=== PATIENT | female | born 2000 | race Caucasian/White ===

== ENCOUNTER 2018-09-07 14:44 | Emergency (ER) | payer OTHER ==
[~2018-09-07] VITALS: Ht 165.1 cm; Wt 63.6 kg
[2018-09-07] MEDS ORDERED: IBUP-1114 PO (14:55)
[2018-09-07] MEDS ORDERED: OXYC1TAB23 PO (14:55)
[2018-09-07] MEDS ORDERED: ONDANSETRON 4 MG ORAL DISINTEGRATING TAB (Q0162 PER 1MG) PO ONE (15:30)
[2018-09-07] MEDS ORDERED: ZOFR4TAB16 PO (16:31)
[2018-09-07 16:37] VITALS: BP 111/61
== END 2018-09-07 16:43 | disposition home or self-care (01) ==
LOC: M ED 14:44
DX: J95.830 Postprocedural hemorrhage of a respiratory system organ or structure following a respiratory system procedure (principal)
CPT/HCPCS: 99283; Q0162

== ENCOUNTER 2018-12-04 13:08 | Emergency (ER) | payer OTHER ==
[~2018-12-04] VITALS: Ht 165.1 cm; Wt 63.6 kg
[~2018-12-04 13:08] MED LIST: IBUP-1114 PO; OXYC1TAB23 PO; ZOFR4TAB16 PO
[2018-12-04] MEDS ORDERED: ASPIRIN (13:16)
[2018-12-04] MEDS ORDERED: CAFFEINE (13:16)
[2018-12-04] MEDS ORDERED: ACETAMINOPHEN (13:16)
[2018-12-04 14:09] LABS: BASO # 0.1 10^3/uL (0.0-0.2); BASO % 0.7 % (0.0-1.0); EOS # 0.1 10^3/uL (0.0-0.50); EOS % 1.2 % (0.0-3.0); HEMATOCRIT 41.7 % (36.0-47.0); HEMOGLOBIN 13.4 g/dl (12.0-15.5); LYMPH # 1.7 10^3/uL (1.5-6.5); LYMPH % 17.1 % (24.0-44.0); MEAN CORPUSCULAR HEMOGLOBIN 29.8 pg (27.0-33.0); MEAN CORPUSCULAR HGB CONC 32.1 g/dl (32.0-36.5); MEAN CORPUSCULAR VOLUME 92.9 fl (80.0-96.0); MONO # 0.6 10^3/uL (0.0-0.8); MONO % 6.5 % (0.0-5.0); NEUTROPHILS # 7.2 10^3/uL (1.8-7.7); NEUTROPHILS % 74.3 % (36.0-66.0); PLATELET COUNT, AUTOMATED 336 10^3/uL (150-450); RED BLOOD COUNT 4.49 10^6/uL (4.00-5.40); WHITE BLOOD COUNT 9.7 10^3/uL (4.0-10.0)
[2018-12-04 14:34] LABS: BLOOD UREA NITROGEN 10 MG/DL (7-18); CALCIUM LEVEL 8.6 MG/DL (8.5-10.1); CARBON DIOXIDE LEVEL 26 MEQ/L (21-32); CHLORIDE LEVEL 111 MEQ/L (98-107); CREATININE FOR GFR 0.72 MG/DL (0.55-1.30); GLUCOSE, FASTING 79 MG/DL (70-100); HCG, SERUM QUANTITATIVE < 1.0 MIU/ML; POTASSIUM SERUM 4.7 MEQ/L (3.5-5.1); SODIUM LEVEL 141 MEQ/L (136-145)
[2018-12-04 17:01] VITALS: BP 107/59
--- NOTE | 2018-12-04 19:13 | REP ---
REASON: Cramping. Transvesical and transvaginal images were obtained. The uterus measures 8.0 x 3.9 x 5.9 cm. The parenchymal echo pattern is within normal limits. The endometrial echo complex measures 3 mm in thickness and is within normal limits. The right ovary measures 2.8 x 1.8 x 1.5 cm and is within normal limits with an RI of 0.64. The left ovary measures 3.2 x 1.1 x 1.6 cm and is within normal limits with an RI of 0.62. There is no free fluid in the cul-de-sac. IMPRESSION: Normal pelvic ultrasound. Electronically Signed by Biju Lyman DO 12/05/2018 10:01 A
== END 2018-12-04 17:04 | disposition home or self-care (01) ==
LOC: M ED 13:08
DX: N92.6 Irregular menstruation, unspecified (principal)

== ENCOUNTER 2019-01-03 06:10 | Emergency (ER) | payer OTHER ==
[~2019-01-03] VITALS: Ht 165.1 cm; Wt 63.6 kg
[~2019-01-03 06:10] MED LIST changes: +ACETAMINOPHEN; +ASPIRIN; +CAFFEINE
[2019-01-03] MEDS ORDERED: ACETAMINOPHEN TAB 650MG DOSE (2X325MG) PO ONE (06:45)
[2019-01-03] MEDS ORDERED: IBUPROFEN 600 MG TAB PO ONE (06:45)
[2019-01-03] MEDS ORDERED: CIPR-249 PO (07:38)
[2019-01-03] MEDS ORDERED: VALT1TAB PO (07:38)
[2019-01-03 07:51] VITALS: BP 94/50
[2019-01-03 11:25] LABS: CHLAMYDIA DNA AMPLIFICATION NEGATIVE (NEGATIVE); GC DNA AMPLIFICATION NEGATIVE (NEGATIVE)
== END 2019-01-03 08:16 | disposition home or self-care (01) ==
LOC: M ED 06:10
DX: N30.00 Acute cystitis without hematuria (principal); N89.8 Other specified noninflammatory disorders of vagina

== ENCOUNTER 2020-05-31 09:58 | Emergency (ER) | payer OTHER ==
[~2020-05-31] VITALS: Ht 165.1 cm; Wt 63.5 kg
[~2020-05-31 09:58] MED LIST changes: +CIPR-249 PO; +VALT1TAB PO
[2020-05-31] MEDS ORDERED: ZOFR4TAB16 PO (10:10)
[2020-05-31] MEDS ORDERED: NS 1,000 ML IV ONE (11:15)
[2020-05-31 12:00] LABS: BASO % 0.4 % (0.0-1.0); EOS # 0.1 10^3/uL (0.0-0.5); EOS % 0.7 % (0.0-3.0); HEMATOCRIT 35.7 % (36.0-47.0); HEMOGLOBIN 11.7 g/dl (12.0-15.5); LYMPH # 1.4 10^3/uL (1.5-5.0); LYMPH % 14.1 % (24.0-44.0); MEAN CORPUSCULAR HEMOGLOBIN 29.9 pg (27.0-33.0); MEAN CORPUSCULAR HGB CONC 32.8 g/dl (32.0-36.5); MEAN CORPUSCULAR VOLUME 91.3 fl (80.0-96.0); MONO # 0.6 10^3/uL (0.0-0.8); MONO % 6.2 % (0.0-5.0); NEUTROPHILS # 7.9 10^3/uL (1.5-8.5); PLATELET COUNT, AUTOMATED 287 10^3/uL (150-450); RED BLOOD COUNT 3.91 10^6/uL (4.00-5.40); WHITE BLOOD COUNT 10.2 10^3/uL (4.0-10.0)
--- NOTE | 2020-05-31 12:04 | REP ---
INDICATION: 15 weeks, pelvic pain/ vag bleeding. COMPARISON: None. TECHNIQUE: Limited obstetric sonography. FINDINGS: Scanning through the gravid uterus demonstrates a viable single intrauterine gestation in transverse lie. motion is observed and heart rate is recorded at 153 beats per minute. A anterior placenta is seen, grade 0, without evidence of placenta previa. Closed cervical length is measured at 3.0 cm transabdominally. No extrauterine abnormality is observed. Amniotic fluid is subjectively normal. IMPRESSION: Viable single intrauterine gestation at 14 weeks 6 days by previously established due date. ALICE 23 November 2020. No complication identified. <Electronically signed by Malick Riggs > 05/31/20 1200
[2020-05-31 12:48] LABS: BLOOD UREA NITROGEN 5 MG/DL (7-18); CARBON DIOXIDE LEVEL 24 MEQ/L (21-32); CHLORIDE LEVEL 108 MEQ/L (98-107); CREATININE FOR GFR 0.46 MG/DL (0.55-1.30); GLOMERULAR FILTRATION RATE > 60.0 (>60); GLUCOSE, FASTING 76 MG/DL (70-100); HCG, SERUM QUANTITATIVE 15139 MIU/ML; POTASSIUM SERUM 3.9 MEQ/L (3.5-5.1); SODIUM LEVEL 140 MEQ/L (136-145)
[2020-05-31] MEDS ORDERED: FLAG500T PO (13:38)
[2020-05-31] MEDS ORDERED: REGL10TA6 PO (13:41)
[2020-05-31 13:50] VITALS: BP 112/70
== END 2020-05-31 13:55 | disposition home or self-care (01) ==
LOC: M ED 09:58
DX: O20.0 Threatened abortion (principal); O26.892 Other specified pregnancy related conditions, second trimester; O26.852 Spotting complicating pregnancy, second trimester; O23.592 Infection of other part of genital tract in pregnancy, second trimester; Z3A.14 14 weeks gestation of pregnancy; Z86.19 Personal history of other infectious and parasitic diseases; Z87.59 Personal history of other complications of pregnancy, childbirth and the puerperium

== ENCOUNTER 2020-09-26 21:31 | Outpatient (CLI) | payer OTHER ==
[~2020-09-26] VITALS: Ht 165.1 cm; Wt 76.4 kg
[~2020-09-26 21:31] MED LIST changes: +FLAG500T PO; +REGL10TA6 PO
[2020-09-26 21:54] VITALS: BP 105/56
--- NOTE | 2020-09-26 22:55 | IPNPDOC ---
Text Note Date of Service The patient was seen on 09/26/20. NOTE HPI: Ms. Loni Aleman is a 20-year-old at 31w5d ega, by first trimester ultrasound, with PNC c/b ASCUS, HPV+ cervical cytology & constipation who presents with complaints of decreased movement & abdominal/pelvic pressure. Ms. Aleman presents reporting decreased movement over the course of the day despite drinking juice and focusing on her kick counts. She also reports abdominal/pelvic pressure. Denies leakage of fluid & vaginal bleeding. Denies urinary frequency/hematuria, vaginal itching/burning sensations, vaginal discharge, or fevers/chills. Past Medical History: - Negative. Past Surgical History: - Hand Surgery with skin graft (as a child) Medications: - vitamins. - Miralax. - Metamucil. - Zofran. Allergies: - No Known Drug Allergies. OB History: - G1: spontaneous conception, Right Ectopic treated with Methotrexate. 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 PHYSICAL EXAMINATION Vital signs: normotensive, afebrile. General: Awake, alert and oriented 3; No apparent distress. Abdomen: Gravid, soft, nondistended, nontender to palpation. Lower Extremities: no clubbing, cyanosis or edema. Sterile Speculum Exam: cervix was visibly closed, with no vaginal bleeding or pooling of fluid. No abnormal discharge noted. fFN, G/C/Trich NAAT collected. SSE: Closed/Long/High NST: Baseline 125 bpm, moderate variability, + accelerations, no deceleration [place]: Uterine Irritability Labs: UA: Negative Leukocyte Esterase; Negative Nitrites; POSITIVE Urine Bacteria (2+); Negative Ketones UCx: Pending JOHANNA: No budding hyphae or yeast Wet Prep: No clue cells or Trichomonas present. Gonorrhea/Chlamydia/Trich NAAT: Pending TVUS: - Cervical length: 5cm ABD/US: - SDP: 8cm Assessment: 20-year-old at 31w5d ega with reactive NST, adequate fluid, uterine irritability with no cervical dilation and cervical length of 5cm. (fFN discarded secondary to cervical length >2.5cm) UA concerning for possible UTI. Will treat and follow-up UCx. Plan: - Encouraged po hydration - Macrobid 100mg po bid x5-days - GBS and G,C/T NAAT pending Patient is to follow-up at her next regularly scheduled OB appointment. - Return precautions were reviewed with the couple All questions answered. 30 minutes spent in counseling. Mina Moody M.D., PhD SUSANA and LATRINE CLEANER Staff VS,Brian, I+O VSBrian I+O Vital Signs Date Time Temp Pulse Resp B/P (MAP) Pulse Ox O2 Delivery O2 Flow Rate FiO2 09/26/20 21:54 98.2 88 18 105/56 (72) OCTAVIO MOODY M.D. Sep 26, 2020 22:55
[2020-09-26 23:38] VITALS: BP 97/57
== END 2020-09-26 23:49 | disposition home or self-care (01) ==
LOC: M LDO 21:31
PROVIDERS: ATTEND Obstetrics & Gynecology Reproductive Endocrinology
DX: O36.8130 Decreased fetal movements, third trimester, not applicable or unspecified (principal); Z3A.31 31 weeks gestation of pregnancy; O26.893 Other specified pregnancy related conditions, third trimester; R10.2 Pelvic and perineal pain; O23.43 Unspecified infection of urinary tract in pregnancy, third trimester
CPT/HCPCS: 59025; 76815; 81001; 87081; 87490; 87590; 87661; G0378; G0463

== ENCOUNTER 2020-10-03 15:57 | Inpatient (IN) | payer OTHER ==
[~2020-10-03] VITALS: Ht 165.1 cm; Wt 76.9 kg
[2020-10-03 16:20] VITALS: BP 101/66
[2020-10-03 18:11] VITALS: BP 105/58
[2020-10-03 20:16] VITALS: BP 105/62
--- NOTE | 2020-10-03 20:25 | IPNPDOC ---
Obstetrical Progress Note Date of Service Oct 03, 2020 Subjective Patient was sent from the clinic for continued monitoring. She presented after an anxiety attack, which had resolved, but she was then feeling painful cramps. She denied VB, LOF, decreased FM. In clinic she was 1/T/H and unchanged on 2h recheck. Her cervix was 3.2cm long and did not have significant change with valsalva. Her JOHANNA/WP were negative and G/C and UCx were collected. UA was unr emarkable. On TAUS her baby is cephalic and had appropriate fluid. She had a 10/10 BPP with a CAT I reactive NST. She was given 1L IV LR in the clinic. Throughout her monitor she has reported increased pain with her contractions and she has regular contractions on tocometry. Objective Vital Signs Date Time Temp Pulse Resp B/P (MAP) Pulse Ox O2 Delivery O2 Flow Rate FiO2 10/03/20 18:11 97.8 87 16 105/58 (74) 10/03/20 16:20 98 Room Air Assessment Heart Rate (FHR): 130 Variability: Moderate Decelerations: None Heart Rate Tracing: Category I Tocometer Contractions: Yes Frequency: regular Sterile Vaginal Examination Dilation: 1cm Effacement (%): 50% Station: -3 Cervical Consistency: Medium Cervical Position: Posterior Postion/Presentation: Cephalic presentation Assessment and Plan Additional Comments Ms. Aleman is a 20yo at 32+5 she presented after an anxiety attack, which had resolved, but she was then feeling painful cramps and had regular contractions on tocometry. In clinic her cervix was 3.2cm long and did not have significant change with valsalva. Her JOHANNA/WP were negative and G/C and UCx were collected. UA was unremarkable. On TAUS her baby is cephalic and had appropriate fluid. She had a 10/10 BPP with a CAT I reactive NST. She was given 1L IV LR in the clinic. In clinic she was 1/T/H and unchanged on 2h repeat exam although at that point the patient noted significant increase in pain with contractions so she was transferred to L+D for continued observation. 3h later she was rechecked again and was unchanged but at that time her uterine contraction frequency increased. МАРИНА GARCIA DO Oct 03, 2020 20:25
[2020-10-03] MEDS ORDERED: MACR100C43 PO (23:30)
[2020-10-03 23:33] VITALS: BP 104/65
[2020-10-03] MEDS ORDERED: NIFEdipine 10 MG CAP PO ONE (23:45)
[2020-10-03] MEDS: metroNIDAZOLE (FLAGYL) 500MG TABLET PO SCH ×2 (23:47→23:58)
[2020-10-03] MEDS: CALCIUM CARBONATE 500 MG CHEW U/D PO SCH (23:47)
[2020-10-03 23:48] VITALS: BP 105/67
[2020-10-03] MEDS: NITROFURANTOIN (MACROBID) 100 MG CAP PO SCH (23:48)
--- NOTE | 2020-10-03 23:53 | HPEPDOC ---
Obstetrical History & Physical General Date of Admission Oct 03, 2020 at 23:13 History of Present Illness Ms. Aleman is a 20yo at 32+5 she presented after an anxiety attack, which had resolved, but she was then feeling painful cramps and had regular contractions on tocometry. In clinic her cervix was 3.2cm long and did not have significant change with valsalva. Her JOHANNA/WP were significant for clue cells and G/C and UCx were collected. UA was unremarkable. On TAUS her baby is cephalic and had appropriate fluid. She had a 10/10 BPP with a CAT I reactive NST. She was given 1L IV LR in the clinic. She is notably being treated for a UTI with macrobid and has one day left. In clinic she was 1/T/H and unchanged on 2h repeat exam although at that point the patient noted significant increase in pain with contractions so she was transferred to L+D for continued observation. 3h later she was rechecked again and was unchanged but at that time her uterine contraction frequency increased. Another 3h later she was checked again and was 2/T/H and decision was made to admit for steroids for lung maturity and tocolysis. 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: History of STD ( chlamydia) Past Medical History Medical History denied Surgical History: Other (skin graft on hand as infant) Family History Significant Family History: No pertinent family hx Social History Marital Status: Family situation: Spouse/partner home Psychosocial History: Anxiety, Depression * Smoker: non-smoker Alcohol: Denies Drugs: denies Imunizations Tdap status: current Influenza Status: current Allergies Coded Allergies: No Known Allergies (Unverified , 09/07/18) Medications Scheduled Nitrofurantoin Monohyd/M-Cryst (Macrobid 100 mg Capsule) 100 Mg Capsule, 100 MG PO BID Ondansetron HCl (Zofran) 4 Mg Tablet, 4 MG PO TID Physical Examination Physical Examination GENERAL: Alert and oriented times three. BREAST: . ABDOMEN: Gravid and non-tender to touch. FETUS: Is vertex (VTX) by sterile vaginal examination (SVE), fetus is vertex (VTX) by ultrasound in clinic today HEART RATE: Regular rate and rhythm. LUNGS: Clear to auscultation (CTA). EXTREMITIES: No edema. No clonus. Vital Signs/I&O Vital Signs Date Time Temp Pulse Resp B/P (MAP) Pulse Ox O2 Delivery O2 Flow Rate FiO2 10/03/20 23:33 98.8 18 10/03/20 18:11 16 105/58 (74) 10/03/20 16:20 98 Room Air Laboratory Data 24H LABS Laboratory Tests 2 10/03/20 23:27: Serology Scanned Report Hepatitis B Testing Urine Culture: No Growth Pertinent Laboratoy Data Blood Type: A+ RBC Antibody Screen: Negative HIV: Negative Hepatitis B: Negative Rapid Plasma Reagin: Nonreactive Rubella: Immune Varicella: Immune Chlamydia/Gonorrhea: Negative Group B Streptococcus: Unknown Quad Screen Test: Declined Cystic Fibrosis: Negative Glucose Tolerance Test: 92 Anatomy Ultrasound Placenta Location: Anterior Normal Anatomy: Yes Steroid Therapy Steroid Therapy: Yes Date #1: Oct 03, 2020 Vaginal Examination Dilation: 2cm Effacement: 50% Station: -3 Cervical Consistency: Medium Cervical Position: Posterior Presentation: Cephalic presentation Assessment Heart Rate (FHR): 130 Variability: Moderate Accelerations: Positive Decelerations: None Tocometer Contractions: Yes Frequency: regular Multi-drug resistant Organism: No history of MDRO Assessment/Plan Assessment Ms. Aleman is a 20yo at 32+5 she presented after an anxiety attack, which had resolved, but she was then feeling painful cramps and had regular contractions on tocometry. In clinic her cervix was 3.2cm long and did not have significant change with valsalva. Her JOHANNA/WP were significant for clue cells and G/C and UCx were collected. UA was unremarkable. On TAUS her baby is cephalic and had appropriate fluid. She had a 10/10 BPP with a CAT I reactive NST. She was given 1L IV LR in the clinic. She is notably being treated for a UTI with macrobid and has one day left. In clinic she was 1/T/H and unchanged on 2h repeat exam although at that point the patient noted significant increase in pain with contractions so she was transferred to L+D for continued observation. 3h later she was rechecked again and was unchanged but at that time her uterine contraction frequency increased. Another 3h later she was checked again and was 2/T/H. As her cervix had made minimal change I will not start penicillin for GBS unknown, but as I do have concern for delivery within the next 7d will start BMTz and tocolysis until BMTz complete. - Admit to L+D - Continuos monitoring, regular diet, VS per protocol - BMTz for lung maturity - tocolysis with nifedipine until BMTz complete - If makes significant cervical change will add PCN for GBS unknown - will give final dose of macrobid for UTI - will start on metronidazole for bacterial vaginosis - pending urine culture and G/C testing from clinic today МАРИНА Bolden DO Oct 03, 2020 23:53
[2020-10-04] VITALS (26 sets, daily range): BP systolic 75–132; BP diastolic 37–75
[2020-10-04] MEDS ORDERED: BETAMETHASONE SOLUSPAN 6MG/ML 5ML VIAL (J0702 PER 3MG) IM SCH
[2020-10-04] MEDS: NITROFURANTOIN (MACROBID) 100 MG CAP PO SCH ×3 (00:05→20:58)
[2020-10-04 00:40] LABS: HEMATOCRIT 34.7 % (36.0-47.0); HEMOGLOBIN 11.4 g/dl (12.0-15.5); MEAN CORPUSCULAR HEMOGLOBIN 29.8 pg (27.0-33.0); MEAN CORPUSCULAR HGB CONC 32.9 g/dl (32.0-36.5); MEAN CORPUSCULAR VOLUME 90.8 fl (80.0-96.0); PLATELET COUNT, AUTOMATED 311 10^3/uL (150-450); RED BLOOD COUNT 3.82 10^6/uL (4.00-5.40); WHITE BLOOD COUNT 13.8 10^3/uL (4.0-10.0)
[2020-10-04] MEDS ORDERED: ONDANSETRON 4MG/2ML VIAL IV SCH (01:00)
[2020-10-04] MEDS ORDERED: ONDANSETRON 4MG/2ML VIAL As Ordered ONE (01:05)
[2020-10-04] MEDS ORDERED: NIFEdipine 10 MG CAP PO ONE (01:15)
[2020-10-04] MEDS ORDERED: LR 1,000 ML IV ONE (02:40)
--- NOTE | 2020-10-04 06:26 | IPNPDOC ---
Obstetrical Progress Note Date of Service Oct 04, 2020 Subjective This morning the patient reports the pain and pessure from her contractions has improved. She denied n/v/d, cp, sob, delgadillo, visual changes, f/c, urinry sx. She denied VB (beyond a couple spots after her last exam), LOF, decreased FM. Objective Vital Signs Date Time Temp Pulse Resp B/P (MAP) Pulse Ox O2 Delivery O2 Flow Rate FiO2 10/04/20 06:07 79 17 97/54 (68) 10/04/20 05:37 98.1 10/03/20 16:20 98 Room Air Assessment Heart Rate (FHR): 120 Variability: Moderate Accelerations: Positive Decelerations: None Heart Rate Tracing: Category I Tocometer Contractions: Yes Frequency: regular Assessment and Plan Additional Comments EXAM AAOx3, NAD no increased WOB non-tachycardic abd is gravid, soft, non-tender extremities without swelling, normal DTRs, negative homans normal affect and insight ASSESSMENT Ms. Aleman is a 20yo at 32+5 she presented after an anxiety attack, which had resolved, but she was then feeling painful cramps and had regular contractions on tocometry. In clinic her cervix was 3.2cm long and did not have significant change with valsalva. Her JOHANNA/WP were negative and G/C and UCx were collected. UA was unremarkable. On TAUS her baby is cephalic and had appropriate fluid. She had a 10/10 BPP with a CAT I reactive NST. She was given 1L IV LR in the clinic. In clinic she was 1/T/H and unchanged on 2h repeat exam although at that point the patient noted significant increase in pain with contractions so she was transferred to L+D for continued observation. 3h later she was rechecked again and was unchanged but at that time her uterine contraction frequency increased and her next exam was 2/T/H so decision was made to admit for PTL. She received BMTz #1 and nifedipine to achieve steroid complete for concern for PTD in the next 7d but GBS prophylaxis was not started as delivery does not appear imminate. This mornin PLAN - Continuos monitoring, regular diet, VS per protocol - BMTz for lung maturity, first dose given - tocolysis with nifedipine until BMTz complete - If makes significant cervical change will add PCN for GBS unknown - will give final dose of macrobid for UTI today - started on metronidazole for bacterial vaginosis - pending urine culture and G/C testing from clinic today МАРИНА Bolden DO Oct 04, 2020 06:26
[2020-10-04] MEDS ORDERED: ONDANSETRON 4MG/2ML VIAL IV PRN (07:00)
[2020-10-04] MEDS: NIFEdipine 10 MG CAP PO SCH ×3 (07:15→19:47)
[2020-10-04] MEDS: metroNIDAZOLE (FLAGYL) 500MG TABLET PO SCH ×2 (09:21→20:58)
[2020-10-04] MEDS: CALCIUM CARBONATE 500 MG CHEW U/D PO SCH ×3 (09:21→21:00)
[2020-10-04] MEDS ORDERED: ACETAMINOPHEN 500 MG TAB PO PRN (13:00)
[2020-10-04] MEDS ORDERED: BETAMETHASONE SOLUSPAN 6MG/ML 5ML VIAL (J0702 PER 3MG) IM ONE (20:25)
[2020-10-04] MEDS ORDERED: ACET-683 PO (20:27)
[2020-10-04] MEDS ORDERED: FLAG500T PO (20:27)
--- NOTE | 2020-10-04 20:29 | DS.PDOC ---
Discharge Summary General Date of Admission Oct 03, 2020 at 23:13 Date of Discharge Oct 04, 2020 Discharge Summary HOSPITAL COURSE: Ms. Loni Aleman is a 20 yo at 32+6 weeks gestation who was admitted yesterday evening for contractions and concern for labor. She received BTMZ, Flagyl (for BV), and her last dose of macrobid from a previously diagnosed UTI. She received nifedipine as well for tocolysis. Her contractions ultimately spaced and nearly resolved and she was transferred to the maternity unit for continued monitoring. She reported that her contractions significantly decreased the evening of her day of discharge ([id number]). Her cervix was checked and was unchanged from her prior exam >18 hours previously. She was then recommended for discharge home and she agreed. On her day of discharge she was meeting all appropriate criteria. She was voiding on her own, had minimal pain, and was tolerating a regular diet. status remained reassuring (Cat I tracing, 02/03 BPP) throughout her hospital stay. She received her second dose of BTMZ before discharge and was thus steroid complete. She was discharged home on the evening of [id number] without complication. DISCHARGE MEDICATIONS: Please see below. ALLERGIES: Please see below. PHYSICAL EXAMINATION ON DISCHARGE: Chaperoned by RN VITAL SIGNS: Please see below. GENERAL: AAOX3, sitting up in bed, NAD ABDOMINAL EXAMINATION: Gravid uterus appropriate size for gestational age. No fundal tenderness. EXTREMITIES: No edema PELVIC: Cervix unchanged, 1/thick/high, posterior PSYCHIATRIC EXAMINATION: Affect appropriate LABORATORY DATA: Please see below. ACTIVITY: As tolerated DIET: Regular DISCHARGE PLAN: Discharge home DISPOSITION: Discharge home on 04Oct2020 DISCHARGE INSTRUCTIONS: 1. Pelvic rest for 2 weeks ITEMS TO FOLLOWUP ON ON OUTPATIENT: 1. 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 Call [facility] and schedule a follow up visit next week DISCHARGE CONDITION: Stable. TIME SPENT ON DISCHARGE: Greater than 20 minutes. Vital Signs/I&Os Vital Signs Date Time Temp Pulse Resp B/P (MAP) Pulse Ox O2 Delivery O2 Flow Rate FiO2 10/04/20 19:47 118/66 10/04/20 18:03 98.4 93 16 10/03/20 16:20 98 Room Air I&O- Last 24 Hours up to 6 AM 10/04/20 06:00 Intake Total 1215 ml Output Total 0 ml Balance 1215 ml Laboratory Data Labs 24H Laboratory Tests 2 10/03/20 23:27: Serology Scanned Report Hepatitis B Testing 10/04/20 00:21: Nucleated Red Blood Cells % (auto) 0.0, Syphilis Serology NONREACTIVE CBC/BMP Laboratory Tests 10/04/20 00:21 Discharge Medications Scheduled Metronidazole (Flagyl) 500 Mg Tablet, 500 MG PO BID Scheduled PRN Acetaminophen (Acetaminophen) 500 Mg Tablet, 1,000 MG PO Q6HP PRN for PAIN / FEVER Allergies Coded Allergies: No Known Allergies (Unverified , 09/07/18) SHABBIR NORWOOD DO Oct 04, 2020 20:29
== END 2020-10-04 21:18 | disposition home or self-care (01) | DRG 833 ==
LOC: M LDO 15:57 → M LDI 23:13 → M OBS 10-04 13:30
PROVIDERS: ADMIT Obstetrics & Gynecology; ATTEND Obstetrics & Gynecology
DX: O47.03 False labor before 37 completed weeks of gestation, third trimester (principal); Z3A.32 32 weeks gestation of pregnancy

== ENCOUNTER 2020-10-21 11:54 | Outpatient (CLI) | payer OTHER ==
[~2020-10-21] VITALS: Ht 165.1 cm; Wt 76.7 kg
[~2020-10-21 11:54] MED LIST changes: +ACET-683 PO; +MACR100C43 PO
[2020-10-21 12:10] VITALS: BP 113/73
[2020-10-21] MEDS ORDERED: TUMS500C PO (12:24)
[2020-10-21] MEDS ORDERED: HOME MED LIST COMPLETE! XX SCH (12:25)
[2020-10-21 13:32] LABS: HEMATOCRIT 35.7 % (36.0-47.0); HEMOGLOBIN 11.7 g/dl (12.0-15.5); MEAN CORPUSCULAR HEMOGLOBIN 29.5 pg (27.0-33.0); MEAN CORPUSCULAR HGB CONC 32.8 g/dl (32.0-36.5); MEAN CORPUSCULAR VOLUME 89.9 fl (80.0-96.0); PLATELET COUNT, AUTOMATED 299 10^3/uL (150-450); RED BLOOD COUNT 3.97 10^6/uL (4.00-5.40); WHITE BLOOD COUNT 9.7 10^3/uL (4.0-10.0)
--- NOTE | 2020-10-21 14:16 | HPEPDOC ---
Obstetrical History & Physical General Date of Admission Item Value Date Time White Blood Count 9.7 10^3/uL 10/21/20 1316 Red Blood Count 3.97 10^6/uL L 10/21/20 1316 Hemoglobin 11.7 g/dl L 10/21/20 1316 Hematocrit 35.7 % L 10/21/20 1316 Mean Corpuscular Volume 89.9 fl 10/21/20 1316 Mean Corpuscular Hemoglobin 29.5 pg 10/21/20 1316 Mean Corpuscular Hemoglobin Concent 32.8 g/dl 10/21/20 1316 Red Cell Distribution Width 13.1 % 10/21/20 1316 Platelet Count 299 10^3/uL 10/21/20 1316 Nucleated Red Blood Cells % (auto) 0.0 % 10/21/20 1316 NAME: NONA HALLMAN DATE OF : 2000 AGE: 20 SEX: F REPORT #: [id number] ROOM: [facility] TECHNOLOGIST: LYDIA DOCTOR: Davian Cantor MD Ordered for Date&Time: 10/21/20 cc: [~ rep ct ivnm] Service Date&Time: 10/21/20 1354 EXAMINATION REQUESTED: US OBS SINGEL GEST REASON FOR PATIENT VISIT: LABOR CHECK REASON FOR EXAM/COMMENT: GROWTH INDICATION: GROWTH COMPARISON: 05/31/2020 TECHNIQUE: Transabdominal obstetrical ultrasound with color Doppler evaluation. FINDINGS: Examination demonstrates a single live intrauterine in cephalic presentation. motion is identified by technologist. Placenta is noted anterior and grade 3 without evidence for placenta previa or abruption. Amniotic fluid volume is normal. Cervix measures 2.9 cm in length and appears closed.. Selected gestational age: 36 weeks 4 days with ALICE 11/14/2020. Gestational age by current measurements 36 weeks 4 days with ALICE 11/14/2020. FHR equals 133 beats per minute. BPD: 9.4 cm at 38 weeks 2 days HC: 33.4 cm at 38 weeks 1 day AC: 31.2 cm at 35 weeks 1 day FL: 6.9 cm at 35 weeks 4 days HL: 6.1 cm at 35 weeks 4 days HC/AC: 1.07 Estimated weight 2790 grams (52ndpercentile). WYATT: 12.2 cm Biophysical profile score: 8/8 Umbilical artery SD ratio: 2.38 IMPRESSION: 1. Single live advanced gestation in cephalic presentation demonstrating appropriate estimated weight and growth. 2. Amniotic fluid index and biophysical profile score are normal. 3. Cervix measures 2.9 cm in length and appears closed. <Electronically signed by Kumar Mauricio > 10/21/20 1436 DD: Kumar Mauricio MD 10/21/20 1434 DT: MAK 10/21/20 1436 DS: JONATAN 10/21/20 1434 10/21/20 1434 [~ rep ct labl] Primary Care Physician: Davian Cantor MD History of Present Illness history of contractions q 5 minutes moderate intensity similar to admission 2 weeks ago when given steriods and tocolysis remained in observation 24 hours no change in cervix, no growth urine no growth vaginal culture . now steroid complete same issue with contractions . no los no vaginal discharge . monitor negative for consistent contractions catagory 1 strip. Chief Complaint: Contractions, pre-term Information Provided By: Patient Age: 19 : 2 Term: 0 Pre-term: 0 Abortions: 1 (ectopic rt tube) Livin Care Care: Good Care Number of Visits: 6 Dating Final EDC: Nov 23, 2020 Final EDC for Daily Update: Nov 23, 2020 Final EDC by: LMP LMP: Jan 19, 2020 1st Trimester Date: Apr 05, 2020 Weeks + Days: 6.6 Estimated Date of Confinement: Nov 23, 2020 EGA at Admission: 35.2 Antepartum Course Diagnos(e)s pre term contractions Height (inches): 65 Pre- weight (lbs.): 130 Admission Weight (lbs.): 171 Change in Weight (lbs.): 41 Past Medical History Past Obstetrical History : Past Obstetrical History: Primgravida 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: Ectopic (right tube ), History of STD Past Medical History Surgical History: Other (hand surgery skin graft) Family History Significant Family History: No pertinent family hx Social 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 Status: Family situation: Spouse/partner home Psychosocial History: No pertinent psych hx * Smoker: non-smoker Alcohol: Denies Drugs: denies Abuse Violence Screening Have you been hit/kicked/slapp: No Have you been sexually assault: No Imunizations Tdap status: current Influenza Status: current Allergies Coded Allergies: No Known Allergies (Unverified , 09/07/18) Medications Scheduled Calcium Carbonate (Tums) 200 Mg Tab.chew, 2 TAB PO Q4H for cough and congestion Metronidazole (Flagyl) 500 Mg Tablet, 500 MG PO BID Scheduled PRN Acetaminophen (Acetaminophen) 500 Mg Tablet, 1,000 MG PO Q6HP PRN for PAIN / FEVER Physical Examination Physical Examination GENERAL: Alert and oriented times three. BREAST: . ABDOMEN: Gravid and non-tender to touch. FETUS: Is vertex (VTX) by sterile vaginal examination (SVE), fetus is vertex (VTX) by Ahbinav. HEART RATE: regular no murmurs rubs clicks LUNGS: Clear to auscultation (CTA). EXTREMITIES: No edema. No clonus. Deep tendon reflexes (DTRs) + . Other physical findings appears comfortable no acute distress chest clear to bases heart regular no murmurs abdomen soft no edema no rashes lesions or puritis no arthralgia myalgia no sob no urgency frequency Vital Signs/I&O Vital Signs Date Time Temp Pulse Resp B/P (MAP) Pulse Ox O2 Delivery O2 Flow Rate FiO2 10/21/20 12:10 96.4 88 18 113/73 (86) Laboratory Data 24H LABS Laboratory Tests 2 10/21/20 13:16: Nucleated Red Blood Cells % (auto) 0.0 CBC/BMP Laboratory Tests 10/21/20 13:16 Microbiology Microbiology 10/21/20 Urine Culture, Received Pending 10/21/20 Group B Streptococcus Screen (RACQUEL), Received Pending Pertinent Laboratoy Data Blood Type: A+ RBC Antibody Screen: Negative HIV: Negative Hepatitis B: Negative Rapid Plasma Reagin: Nonreactive Rubella: Immune Varicella: Immune Chlamydia/Gonorrhea: Negative Group B Streptococcus: Negative Cystic Fibrosis: Negative Anatomy Ultrasound Ultrasound Date: Jul 06, 2020 Placenta Location: Anterior Normal Anatomy: Yes Placenta Previa: No Estimated Weight (grams): 340 Steroid Therapy Steroid Therapy: Yes Date #2: Oct 03, 2020 Vaginal Examination Dilation: 1cm Effacement: 30% Station: -3 Cervical Consistency: Soft Cervical Position: Posterior Presentation: Cephalic presentation Assessment Heart Rate (FHR): 140 Variability: Moderate Accelerations: Present Decelerations: None Tocometer Frequency: irregular, greater than 10 min/apart Strength: palpated as mild Assessment/Plan Assessment 19-year-old (G)2 para (P)0 at 35.2 weeks by 6.6 week ultrasound. Presents to Labor and Delivery (L&D) history of contractions similar to last encounter . Plan observation and orient Hand Sprayer and consent. Diet: [place] . Group B Streptococcus (GBS) [negative]. Labs and intravenous (IV) per unit protocol. Counseled on medication . Lactated Ringers (LR): Bolus 1000ml mL, then at 125 mL/hr. Anticipate discharge improved Labor and Delivery Counseling reviewed last admission and treatment and discharge undelivered . plan to repeat labs us monitor steroid complete if anticipate labor and delivery would consider neuro prophylaxis Davian Cantor MD Oct 21, 2020 14:16
--- NOTE | 2020-10-21 14:40 | REP ---
INDICATION: GROWTH COMPARISON: 05/31/2020 TECHNIQUE: Transabdominal obstetrical ultrasound with color Doppler evaluation. FINDINGS: Examination demonstrates a single live intrauterine in cephalic presentation. motion is identified by technologist. Placenta is noted anterior and grade 3 without evidence for placenta previa or abruption. Amniotic fluid volume is normal. Cervix measures 2.9 cm in length and appears closed.. Selected gestational age: 36 weeks 4 days with ALICE 11/14/2020. Gestational age by current measurements 36 weeks 4 days with ALICE 11/14/2020. FHR equals 133 beats per minute. BPD: 9.4 cm at 38 weeks 2 days HC: 33.4 cm at 38 weeks 1 day AC: 31.2 cm at 35 weeks 1 day FL: 6.9 cm at 35 weeks 4 days HL: 6.1 cm at 35 weeks 4 days HC/AC: 1.07 Estimated weight 2790 grams (52ndpercentile). WYATT: 12.2 cm Biophysical profile score: 8/8 Umbilical artery SD ratio: 2.38 IMPRESSION: 1. Single live advanced gestation in cephalic presentation demonstrating appropriate estimated weight and growth. 2. Amniotic fluid index and biophysical profile score are normal. 3. Cervix measures 2.9 cm in length and appears closed. <Electronically signed by Kumar Mauricio > 10/21/20 [id number]
== END 2020-10-21 15:32 | disposition home or self-care (01) ==
LOC: M LDO 11:54
PROVIDERS: ATTEND Obstetrics & Gynecology
DX: O47.03 False labor before 37 completed weeks of gestation, third trimester (principal); Z3A.35 35 weeks gestation of pregnancy; Z79.899 Other long term (current) drug therapy
CPT/HCPCS: 59025; 76811; 76817; 76819; 76820; 85027; 87081; 87086; G0378; G0463

== ENCOUNTER 2020-11-06 14:29 | Outpatient (CLI) | payer OTHER ==
[~2020-11-06 14:29] MED LIST changes: +TUMS500C PO
--- NOTE | 2020-11-06 16:30 | IPNPDOC ---
Subjective Date Seen The patient was seen on 11/06/20. Subjective Chief Complaint/HPI 20yo at 37w4d by 6w6d US with ALICE Oct presents to triage with concern for decreased movement since yesterday at 1300, and an episode of vaginal spotting. She has tried juice and ice water with no kicks felt. She also notes occasional contraction pain. Denies LOF, VB or discharge. General: Reports: Normal Appetite; Denies: Chills, Night Sweats, Fatigue, Malaise Pulmonary: Denies: Dyspnea, Cough Cardiovascular: Denies: Chest Pain, Palpitations, Orthopnea, Paroxysmal Noc. Dyspnea, Lt Headedness Neurological: Denies: Weakness, Numbness, Change in speech, Confusion Psych: Reports: Mood Normal; Denies: Depression, Memory Issues Objective Physical Examination General Exam: Positive: Alert, No Acute Distress Heart Exam: Positive: Rate Normal Abdomen Exam: Positive: Soft; Negative: Tenderness Other physical findings FHT: 120's, mod variabilty, +accesl, no decels. Cat 1 tracing [place]: contractions every 2-3 min SVE: 50/-2 Assessment /Plan Assessment 20yo at 37w4d with decreased FM. Overall uncomplicated Plan/VTE VTE Prophylaxis Ordered?: No VTE Exclusion Mechanical Proph: Other (triage) Plan Cat 1 FHT, pt now reporting +GFM. Pt is lila regularly, however comfortable in bed. SVE /-2. Offered 2hr recheck vs. pt going home and returning if contractions worsen. Pt elects to go home at this time. Has follow up scheduled for . All questions answered. Disposition home JAM BLANCAS M.D. Nov 06, 2020 16:30
== END 2020-11-06 16:15 | disposition home or self-care (01) ==
LOC: M LDO 14:29
PROVIDERS: ATTEND Obstetrics & Gynecology
DX: O36.8130 Decreased fetal movements, third trimester, not applicable or unspecified (principal); Z3A.37 37 weeks gestation of pregnancy
CPT/HCPCS: 59025; G0378; G0463

== ENCOUNTER 2020-11-07 00:34 | Outpatient (CLI) | payer OTHER ==
[2020-11-07 00:53] VITALS: BP 133/67
--- NOTE | 2020-11-07 01:57 | IPNPDOC ---
Obstetrical Progress Note Date of Service Nov 07, 2020 Subjective Ms. Laws is a 20yo at 37+5 presenting with contractions. She came in yesterday and /-2. She endorsed some nausea. She denied diarrhea, chest pain, SOB, F/C, vaginal discharge, urinary sx. She endorsed some pink discharge after her last cervical exam but denied vaginal bleeding. She denied LOF and decreased FM. Objective Vital Signs Date Time Temp Pulse Resp B/P (MAP) Pulse Ox O2 Delivery O2 Flow Rate FiO2 11/07/20 00:53 97.8 88 18 133/67 (89) Assessment Heart Rate (FHR): 125 Variability: Moderate Accelerations: Positive Decelerations: None Heart Rate Tracing: Category I Tocometer Contractions: Yes Frequency: irregular Sterile Vaginal Examination Dilation: 1cm Effacement (%): 70% Station: -3 Assessment and Plan Additional Comments Ms. Laws is a 20yo at 37+5 presenting with contractions. She came in yesterday and /-2, exam now was /-3. VS normal. CAT I NST, reactive, irregular contractions. TAUS cephalic, MVP 4.8cm. Eminent active labor is unlikely at this time. Educated on routine OB return precautions. Otherwise follow up at next МАРИНА JARQUIN DO Nov 07, 2020 01:57
== END 2020-11-07 02:00 | disposition home or self-care (01) ==
LOC: M LDO 00:34
PROVIDERS: ATTEND Obstetrics & Gynecology
DX: O47.1 False labor at or after 37 completed weeks of gestation (principal); Z3A.37 37 weeks gestation of pregnancy; O26.893 Other specified pregnancy related conditions, third trimester; R11.0 Nausea
CPT/HCPCS: 59025; G0378; G0463

== ENCOUNTER 2020-11-10 22:51 | Outpatient (CLI) | payer OTHER ==
[~2020-11-10] VITALS: Ht 165.1 cm; Wt 80.7 kg
[2020-11-10 23:09] VITALS: BP 124/74
[2020-11-10] MEDS ORDERED: ZOFR4TAB16 PO (23:17)
--- NOTE | 2020-11-10 23:51 | IPNPDOC ---
Obstetrical Progress Note Date of Service Nov 10, 2020 Subjective Ms. Laws is a 20yo at 38+1 presents for suspected ROM at 10pm, clear, no odors. Denied VB, decreased FM, regular contractions, and a 12 point ROS. Objective Vital Signs Date Time Temp Pulse Resp B/P (MAP) Pulse Ox O2 Delivery O2 Flow Rate FiO2 11/10/20 23:09 97.5 95 18 124/74 (91) 99 Assessment Variability: Moderate Accelerations: Positive Decelerations: None Heart Rate Tracing: Category I Tocometer Contractions: Yes Frequency: irregular Sterile Vaginal Examination Dilation: 1cm Effacement (%): 50% Station: -3 Cervical Consistency: Soft Cervical Position: Posterior Postion/Presentation: Cephalic presentation (by US) Assessment and Plan Status: Reassuring Additional Comments Ms. Laws is a 20yo at 38+1 presents for suspected ROM at 10pm, clear, no odors. CAT I NST. SVE /-3 and was 1cm the last time she was checked, em inent active labor is unlikely at this time. She had intercourse this morning so nitrazine was not performed. Pooling was negative. There was a small amount of white discharge in the posterior fornix. Ferning was negative. TAUS cephalic, MVP 4cm, +FM. ROM is unlikely at this time. Educated on routine OB return precautions. Otherwise to follow up at next МАРИНА JARQUIN DO Nov 10, 2020 23:51
== END 2020-11-10 23:51 | disposition home or self-care (01) ==
LOC: M LDO 22:51
PROVIDERS: ATTEND Obstetrics & Gynecology
DX: O47.1 False labor at or after 37 completed weeks of gestation (principal); Z3A.38 38 weeks gestation of pregnancy; O26.893 Other specified pregnancy related conditions, third trimester; N89.8 Other specified noninflammatory disorders of vagina
CPT/HCPCS: 59025; 76815; G0378; G0463

== ENCOUNTER 2020-11-17 11:30 | Outpatient (CLI) | payer OTHER ==
[~2020-11-17] VITALS: Ht 165.1 cm; Wt 80.0 kg
[2020-11-17 11:41] VITALS: BP 117/73
[2020-11-17] MEDS ORDERED: LR 1,000 ML IV SCH (11:45)
--- NOTE | 2020-11-17 13:03 | IPNPDOC ---
Text Note Date of Service The patient was seen on 11/17/20. NOTE 1. 2. 3. FOLLOWUP: All of the above was relayed to the patient who was given an opportunity to ask questions that were answered to satisfaction. The patient voiced an understanding and agreed to proceed. I spent minutes during this visit seeing the patient [id number] and reviewing records. More than [50]% of the time was spent in direct [id number] discussion and counseling of the patient. 11/17/20 1130 am 19 yo A 1 EDC BY 6.6 WEEK 11/23/20 CAME TO L AND D CONTRACTIONS NO LOSS OF FLUID , NO VAGINAL BLEEDING [facility] GOOD. APPEARS DISTRESSED SF 38 CM CATEGORY 1 STRIP PELVIC EXAM POSTERIOR 1 CM VERTEX -3 STATION 50% EFFACED . PLAN REVIEW PROGRESS 2 HOURS IV FLUIDS AND CHAO EXPRESSED UNDERSTANDING 1400 hours reassessment category 1 strip still mild to moderate contractions reassessment cervix unchanged posterior 1 cm no bleeding membranes intact. REVIEWED OPTIONS STAY REASSESSMENT 1-2 HOURS OR GO HOME RETURN FOR REASSESSMENT UNLESS SROM ACTIVE LABOR WITH CONTRACTIONS LASTING 40-60 SECONDS 5 MINUTES APART . AFTER DISCUSSION WITH DECIDED TO GO HOME AND RETURN IF THINGS CHANGE PATIENT DISCHARGED UNDELIVERED VS,Fishbone, I+O VS, Fishbone, I+O Vital Signs Date Time Temp Pulse Resp B/P (MAP) Pulse Ox O2 Delivery O2 Flow Rate FiO2 11/17/20 11:41 97.4 98 18 117/73 (88) Davian Cantor MD Nov 17, 2020 13:03
== END 2020-11-17 14:10 | disposition home or self-care (01) ==
LOC: M LDO 11:30
PROVIDERS: ATTEND Obstetrics & Gynecology
DX: O47.1 False labor at or after 37 completed weeks of gestation (principal); Z3A.39 39 weeks gestation of pregnancy
CPT/HCPCS: 59025; 96360; 96361; G0378; G0463

== ENCOUNTER 2020-11-23 15:30 | Outpatient (CLI) | payer OTHER ==
[~2020-11-23] VITALS: Ht 165.1 cm; Wt 81.4 kg
--- NOTE | 2020-11-23 17:03 | IPNPDOC ---
Obstetrical Progress Note Date of Service Nov 23, 2020 Subjective Ms. Laws is a 19yo at 40+0 presents for a labor check and concern for ROM. She thinks she might have urinated although. She endorsed some pink color in her mucous but not sangeetha vaginal bleeding. She denied decreased FM. Assessment Variability: Moderate Accelerations: Positive Decelerations: None Heart Rate Tracing: Category I Tocometer Contractions: Yes Frequency: regular Sterile Vaginal Examination Dilation: 1cm Effacement (%): 50% Station: -3 Cervical Consistency: Soft Cervical Position: Posterior Postion/Presentation: Cephalic presentation (by US MVP 4cm) Assessment and Plan Additional Comments Ms. Laws is a 19yo at 40+0 presents for a labor check and concern for ROM. NST CAT I reactive and reassuring. SVE is 1cm which is unchanged from her prior exam. VS normal. No pooling or ferning. Negative nitrazine. TAUS cephalic with MVP 4cm. +FM. Eminent active labor and rupture of membranes are unlikely at this time. Educated on routine OB return precautions. Otherwise to follow up at next МАРИНА JARQUIN DO Nov 23, 2020 17:02
[2020-11-23] MEDS ORDERED: TUMS500C PO (17:24)
== END 2020-11-23 17:00 | disposition home or self-care (01) ==
LOC: M LDO 15:30
PROVIDERS: ATTEND Registered Nurse
DX: O47.1 False labor at or after 37 completed weeks of gestation (principal); Z3A.40 40 weeks gestation of pregnancy; O48.0 Post-term pregnancy; Z79.899 Other long term (current) drug therapy
CPT/HCPCS: 59025; G0378; G0463

== ENCOUNTER 2020-11-24 04:04 | Inpatient (IN) | payer OTHER ==
[2020-11-24] VITALS (32 sets, daily range): BP systolic 84–130; BP diastolic 49–79
[~2020-11-24] VITALS: Ht 165.1 cm; Wt 8.1 kg
[2020-11-24] MEDS: LR 500 ML IV SCH ×3 (05:39→11:20)
[2020-11-24] MEDS ORDERED: LIDOCAINE 1% MDV 20ML VIAL INFIL PRN (05:45)
[2020-11-24] MEDS ORDERED: OXYTOCIN DRIP 30 UNITS in IV 1 EA IV PRN (05:45)
[2020-11-24 06:08] LABS: HEMATOCRIT 37.4 % (36.0-47.0); HEMOGLOBIN 12.6 g/dl (12.0-15.5); MEAN CORPUSCULAR HEMOGLOBIN 29.4 pg (27.0-33.0); MEAN CORPUSCULAR HGB CONC 33.7 g/dl (32.0-36.5); MEAN CORPUSCULAR VOLUME 87.4 fl (80.0-96.0); PLATELET COUNT, AUTOMATED 323 10^3/uL (150-450); RED BLOOD COUNT 4.28 10^6/uL (4.00-5.40); WHITE BLOOD COUNT 16.2 10^3/uL (4.0-10.0)
[2020-11-24] MEDS ORDERED: FENTANYL 2MCG/ML ROPIVACAINE 0.2% IN 0.9% NACL 100ML IVBAG As Ordered ONE (06:41)
[2020-11-24] MEDS ORDERED: EPIDURAL/PCA KEYS XX PRN (07:25)
[2020-11-24] MEDS ORDERED: NALOXONE INJ 0.4MG/1ML VIAL (J2310 PER 1MG) IV PRN ×3 (07:25→16:56)
[2020-11-24] MEDS ORDERED: LACTATED RINGER'S 1000 ML IV PRN (07:25)
[2020-11-24] MEDS ORDERED: REFRIGERATOR IV KEYS XX PRN (07:25)
[2020-11-24] MEDS ORDERED: FENTANYL/ROPIVACAINE/NACL BAG 100 ML EPIDURAL SCH (07:25)
[2020-11-24] MEDS ORDERED: diphenhydrAMINE 50MG/ML VIAL (J1200) IV PRN ×2 (07:25→16:56)
[2020-11-24] MEDS ORDERED: EPIDURAL COMMENT XX SCH (07:25)
[2020-11-24] MEDS ORDERED: ONDANSETRON 4MG/2ML VIAL IV PRN ×3 (07:25→18:05)
[2020-11-24] MEDS: ePHEDrine SULFATE 25 MG/5 ML(5MG/ML) SYRINGE IV PRN ×3 (07:54→11:12)
[2020-11-24] MEDS ORDERED: LR 1,000 ML IV SCH (07:55)
[2020-11-24] MEDS ORDERED: OXYTOCIN DRIP 30 UNITS in IV 1 EA IV SCH ×2 (07:55→17:55)
[2020-11-24] MEDS ORDERED: BICITRA 30ML SOLN UDC PO ONE (15:50)
[2020-11-24] MEDS ORDERED: ceFAZolin SOD 2 GM in IV 1 EA IV ONE (15:50)
[2020-11-24] MEDS ORDERED: AZITHROMYCIN INJ 500 MG, VIAL MATE ADAPTER 1 EACH in NS 250 ML IV ONE (15:50)
[2020-11-24] MEDS ORDERED: ONDANSETRON 4MG/2ML VIAL As Ordered ONE (16:26)
[2020-11-24] MEDS ORDERED: KETOROLAC 60MG 2ML VIAL As Ordered ONE (16:26)
[2020-11-24] MEDS ORDERED: dexameTHASONE 4 MG/ML 1ML VIAL (J1100 PER 1MG) As Ordered ONE (16:26)
[2020-11-24] MEDS ORDERED: MORPHINE PRES-FREE INJ 10 MG/10 ML VIAL (J2274) As Ordered ONE (16:26)
[2020-11-24] MEDS ORDERED: OXYTOCIN INJ 10 UNITS/ML VIAL (J2590) As Ordered ONE (16:26)
[2020-11-24] MEDS ORDERED: ePHEDrine SULFATE 25 MG/5 ML(5MG/ML) SYRINGE As Ordered ONE (16:27)
[2020-11-24] MEDS ORDERED: PHENYLephrine 500MCG 5ML (100MCG/ML) SYRINGE As Ordered ONE ×2 (16:27→17:12)
[2020-11-24] MEDS ORDERED: OXYTOCIN 30 UNITS IN 0.9% NaCl 500ML IV BAG (J2590) As Ordered ONE ×2 (16:29→18:07)
[2020-11-24] MEDS ORDERED: NALBUPHINE HCL 10 MG/ML AMP (J2300) IV PRN (16:56)
[2020-11-24] MEDS ORDERED: METOCLOPRAMIDE INJ 10MG/2ML VIAL (J2765 PER 1) IV PRN (16:56)
[2020-11-24 17:36] LABS: CORD GAS ABE V -4.8; CORD GAS HCO3 V 23.6 MEQ/L; CORD GAS O2 SAT V 40.3 %; CORD GAS PCO2 V 57.6 mmHg; CORD GAS PH V 7.231 UNITS; CORD GAS PO2 V 19.6 mmHg; CORD GAS SBC V 19.3 MEQ/L; CORD GAS TCO2 V 25.4 MEQ/L
[2020-11-24 17:37] LABS: CORD GAS ABE A -6.7; CORD GAS HCO3 A 21.7 MEQ/L; CORD GAS O2 SAT A 51.1 %; CORD GAS PCO2 A 54.8 mmHg; CORD GAS PH A 7.215 UNITS; CORD GAS PO2 A 23.4 mmHg; CORD GAS TCO2 A 23.4 MEQ/L
[2020-11-24] MEDS ORDERED: DOCUSATE SODIUM 100MG CAPSULE PO PRN (17:55)
[2020-11-24] MEDS ORDERED: PROMETHAZINE 25 MG TAB PO PRN (17:55)
[2020-11-24] MEDS ORDERED: RHOGAM 300 MCG (1500 IU) INJ (J2790) IM SCH (17:55)
[2020-11-24] MEDS ORDERED: ACETAMINOPHEN 500 MG TAB PO PRN (17:55)
[2020-11-24] MEDS ORDERED: MEASLES,MUMPS,RUBELLA VACCINE INJ (MMR-II) (90707) SC SCH (17:55)
[2020-11-24] MEDS ORDERED: SIMETHICONE 80MG CHEW TAB PO PRN (17:55)
[2020-11-24] MEDS ORDERED: oxyCODONE 5MG TAB PO PRN ×3 (17:55→18:05)
[2020-11-24] MEDS ORDERED: fentaNYL 100 MCG/2 ML INJECTION IV PRN (18:05)
[2020-11-24] MEDS ORDERED: ACETAMINOPHEN TAB 650MG DOSE (2X325MG) PO PRN (18:30)
[2020-11-24] MEDS: KETOROLAC 30 MG/ML 1ML VIAL IV SCH (23:28)
[2020-11-25] VITALS (7 sets, daily range): BP systolic 97–115; BP diastolic 51–59
[2020-11-25] MEDS: LR 1,000 ML IV SCH ×2 (05:37→13:17)
[2020-11-25] MEDS: KETOROLAC 30 MG/ML 1ML VIAL IV SCH ×2 (05:37→11:36)
[2020-11-25 08:02] LABS: HEMATOCRIT 31.3 % (36.0-47.0); MEAN CORPUSCULAR HEMOGLOBIN 29.5 pg (27.0-33.0); MEAN CORPUSCULAR HGB CONC 32.9 g/dl (32.0-36.5); MEAN CORPUSCULAR VOLUME 89.7 fl (80.0-96.0); PLATELET COUNT, AUTOMATED 268 10^3/uL (150-450); RED BLOOD COUNT 3.49 10^6/uL (4.00-5.40); WHITE BLOOD COUNT 27.8 10^3/uL (4.0-10.0)
[2020-11-25 08:03] LABS: HEMOGLOBIN 10.3 g/dl (12.0-15.5)
[2020-11-25] MEDS: PRENATAL VITAMINS CHEWABLE TABLET PO SCH (08:31)
[2020-11-25] MEDS: IBUPROFEN 800 MG TAB PO SCH (19:42)
[2020-11-26 02:00] VITALS: BP 119/68
[2020-11-26] MEDS: IBUPROFEN 800 MG TAB PO SCH ×2 (03:06→12:01)
[2020-11-26 06:00] VITALS: BP 104/63
[2020-11-26] MEDS: PRENATAL VITAMINS CHEWABLE TABLET PO SCH (08:27)
[2020-11-26 10:12] VITALS: BP 118/69
== END 2020-11-26 12:20 | disposition home or self-care (01) | DRG 773 ==
LOC: M LDO 04:04 → M LDI 05:25 → M OBS 19:39
PROVIDERS: ADMIT Obstetrics & Gynecology; ATTEND Obstetrics & Gynecology
PROC: 10907ZC Drainage of Amniotic Fluid, Therapeutic from Products of Conception, Via Natural or Artificial Opening (ICD-10-PCS; 2020-11-24)
PROC: 10D00Z1 Extraction of Products of Conception, Low, Open Approach (ICD-10-PCS; principal; 2020-11-24 15:46)
DX: O76 Abnormality in fetal heart rate and rhythm complicating labor and delivery (principal); Z37.0 Single live birth; Z3A.40 40 weeks gestation of pregnancy; O62.0 Primary inadequate contractions; O48.0 Post-term pregnancy